=== PATIENT | female | born 1955 | race Hispanic/Latino ===

== ENCOUNTER 2020-10-01 05:01 | Emergency (ER) | payer OTHER ==
--- OUTSIDE RECORDS SUMMARY | 2020-10-01 05:04 | XMS REPORT | Continuity of Care Document ---
:1955 Author Organization [facility] t Address [address] [place] [address] Care Team Providers Name Role Phone Unavailable Unavailable Unavailable Payers Payer Name Policy Type Policy Number Effective Date Expiration Date S ource Problems This patient has no known problems. Allergies, Adverse Reactions, Alerts This patient has no known allergies or adverse reactions. Medications This patient has no known medications. Procedures This patient has no known procedures. Results This patient has no known results.
[2020-10-01] MEDS ORDERED: ACETAMINOPHEN 500 MG TAB ONE (05:56)
[2020-10-01] MEDS ORDERED: DIPHENHYDRAMINE 50 MG/ML VIAL ONE (05:56)
[2020-10-01] MEDS ORDERED: NA CHLORIDE 0.9% 1,000 ML ONE (05:56)
[2020-10-01] MEDS ORDERED: METOCLOPRAMIDE 10 MG/2mL INJ ONE (05:56)
[2020-10-01 06:12] LABS: Protime INR 1.03
[2020-10-01 06:14] LABS: Absolute Lymphocytes (CBC) 1.5 K/uL (0.7-4.9); Basophils % 1.1 % (0-1.3); Hematocrit 37.1 % (36.0-45.0); Lymphocytes % 34.2 % (15.3-44.8); MPV 8.3 fL (7.6-11.3); RBC Red Blood Cell Count 4.15 M/uL (3.86-4.86)
[2020-10-01 06:28] LABS: Albumin 3.7 g/dL (3.4-5.0); Bilirubin Direct 0.1 mg/dL (0-0.2); Bilirubin Total 0.5 mg/dL (0.2-1.0); Potassium 4.2 mmol/L (3.5-5.1); Protein, Total 8.5 g/dL (6.4-8.2)
--- NOTE | 2020-10-01 07:52 | RAD REPORT ---
EXAM DESCRIPTION: CT - Soft Tissue Neck W/Contr - 10/01/2020 7:23 am CLINICAL HISTORY: SORE THROAT COMPARISON: Head C Spine Mpr Wo Con dated 10/01/2020 TECHNIQUE: During dynamic enhancement using 100 milliliters nonionic IV contrast, axial 5 millimeter thick images of the neck were obtained. All CT scans are performed using dose optimization technique as appropriate and may include automated exposure control or mA/KV adjustment according to patient size. FINDINGS: Intracranial portion the examination is unremarkable. No evidence for cerebellopontine ang le mass. Tonsillar ectopia is not seen. No bone destruction or other suspicious skullbase finding. Mi ddle ears are fully aerated as well. Mastoid air cells and visualized paranasal sinuses are clear. No globe or orbital content abnormality seen. Cervical spine degenerative changes are present bony fora madalyn encroachment present at C4-5 and C5-6. More mild bony encroachment seen at C6-7. Right-side C7- T1 bony foraminal encroachment present. Borderline to mild central spinal stenosis present at C4-5 an d C5-6. Parotid, submandibular and thyroid gland tissue show no suspicious findings. Both internal carotid arteries show slightly aberrant medial course which creates a slight convex bul ging to the posterior pharyngeal mucosa. Parapharyngeal fat is normal. There is minimal asymmetry of the superior right tonsil and right side soft palate believed to be the affects of slight head tilt within the scanner. No tonsillar abscess o r prevertebral soft tissue thickening. There is a slight fullness to the right tonsil relative to the left. No defined mass or focus of abnormal enhancement seen. A few small nonspecific cervical lymph nodes are present. No bulky lymphadenopathy or abnormally enhancing lymph nodes. IMPRESSION: As detailed above, no abscess or surgically emergent finding identifiable. No clearly defined mass or suspicious lymphadenopathy. The slight asymmetry of the right side soft pa late and right tonsil believed to be the affects of slight head tilt. Mild pharyngitis can be present and occult on CT imaging.
[2020-10-01] MEDS ORDERED: PEN G BENZ LA 1.2MU/2ML SYRINGE IM ONE (08:15)
--- NOTE | 2020-10-01 08:18 | ER ---
Nurse's Notes [facility] Name: Marquita Phelan Age: 65 yrs Sex: Female : 1955 Arrival Date: 10/01/2020 Time: 05:06 Bed 15 Private MD: Diagnosis: Headache;Streptococcal pharyngitis;Cervical Radiculopathy Presentation: 10/01 05:13 Chief complaint: Patient states: Reports headache that started , reports the ea pain is on the right side of her head and radiates to the right side of the base of the skull, reports the pain is throbbing pressure and nothing makes the pain better. Coronavirus screen: At this time, the client does not indicate any symptoms associated with coronavirus-19. Ebola Screen: No symptoms or risks identified at this time. Initial Sepsis Screen: Does the patient meet any 2 criteria? No. Patient's initial sepsis screen is negative. Does the patient have a suspected source of infection? No. Patient's initial sepsis screen is negative. Risk Assessment: Do you want to hurt yourself or someone else? Patient reports no desire to harm self or others. Onset of symptoms. 05:13 Method Of Arrival: Ambulatory ea 05:13 Acuity: SHERON 3 ea Historical: - Allergies: 05:18 hydrocodone; ea - PSHx: 05:18 None; oral surgery; ea - Immunization history:: Adult Immunizations up to date. - Social history:: Smoking status: Patient denies any tobacco usage or history of. Screenin:16 Abuse screen: Denies threats or abuse. Nutritional screening: No deficits noted. ea Tuberculosis screening: No symptoms or risk factors identified. Fall Risk None identified. Assessment: 05:20 General: Appears uncomfortable, Behavior is appropriate for age. Pain: Complains of ea pain in right side of head and right posterior aspect of neck. Neuro: Level of Consciousness is awake, alert, obeys commands, Oriented to person, place, time. Respiratory: Airway is patent Respiratory effort is even, unlabored, Respiratory pattern is regular, symmetrical. Derm: Skin is pink, warm \T\ dry. 06:45 Reassessment: Patient and/or family updated on plan of care and expected duration. Pain ea level reassessed. Patient is alert, oriented x 3, equal unlabored respirations, skin warm/dry/pink. Vital Signs: 05:13 BP 121 / 97; Pulse 73; Resp 19; Temp 98.1; Pulse Ox 99% ; Weight 77.11 kg; Height 5 ft. ea 2 in. (157.48 cm); 08:20 BP 121 / 97; Pulse 70; Resp 18; Pulse Ox 98% on R/A; kg 05:13 Body Mass Index 31.09 (77.11 kg, 157.48 cm) ea [place] Coma Score: 08:16 Eye Response: spontaneous(4). Verbal Response: oriented(5). Motor Response: obeys rn commands(6). Total: 15. ED Course: 05:06 Patient arrived in ED. es 05:10 Fausto Myers MD is Attending Physician. [facility] 05:15 Triage completed. ea 05:16 Arm band placed on right wrist. Patient placed in an exam room, on a stretcher, on ea pulse oximetry. 05:16 Patient has correct armband on for positive identification. Bed in low position. Call ea light in reach. Pulse ox on. NIBP on. 05:29 Mindy Gotti, [facility] is Primary Nurse. ea 05:45 Inserted saline lock: 20 gauge in right antecubital area, using aseptic technique. ea Blood collected. 06:07 CT Head C Spine In Process Unspecified. EDMS 07:23 Soft Tissue Neck W/Contr CT In Process Unspecified. EDMS 08:33 No provider procedures requiring assistance completed. IV discontinued, intact, kg bleeding controlled, No redness/swelling at site. Pressure dressing applied. Administered Medications: 05:44 Drug: Reglan (metoCLOPramide) 10 mg Route: IVP; Site: right antecubital; jm8 08:35 Follow up: Response: No adverse reaction; Marked relief of symptoms kg 05:44 Drug: Benadryl (diphenhydrAMINE) 25 mg Route: IVP; Site: right antecubital; jm8 08:35 Follow up: Response: No adverse reaction; Marked relief of symptoms kg 05:44 Drug: Tylenol 1000 mg Route: PO; jm8 08:34 Follow up: Response: No adverse reaction; Marked relief of symptoms kg 05:45 Drug: NS 0.9% 1000 ml Route: IV; Rate: 1000 ml; Site: right antecubital; jm8 07:00 Follow up: Response: No adverse reaction; IV Status: Completed infusion; IV Intake: kg 1000ml 08:02 Drug: Bicillin L-A (penicillin G Benzathine) 1.2 million units Route: IM; Site: left kg gluteus; 08:34 Follow up: Response: No adverse reaction kg Intake: 07:00 IV: 1000ml; Total: 1000ml. kg Outcome: 08:17 Discharge ordered by . rn 08:33 Discharged to home ambulatory. kg 08:33 Condition: improved 08:33 Discharge instructions given to patient, family, Instructed on discharge instructions, follow up and referral plans. Demonstrated understanding of instructions, follow-up care, medications, Prescriptions given X 1. 08:36 Patient left the ED. kg Signatures: Dispatcher [employer] Soumya Barone Roman, MD MD rn Antunez, Elena, RN RN ea Holmes, Maurice, MD MD mh7 Joseph Benites RN CHINMAY jm8 Bree Forman kg
--- NOTE | 2020-10-01 08:18 | EDPHYS ---
Physician Documentation [facility] Name: Marquita Phelan Age: 65 yrs Sex: Female : 1955 Arrival Date: 10/01/2020 Time: 05:06 Bed 15 Private MD: ED Physician Fausto Myers HPI: 10/01 05:34 This 65 yrs old Female presents to ER via Ambulatory with complaints of Head mh7 pain. 05:34 The patient complains of pain to the right side of head. The patient describes the mh7 headache as throbbing. Onset: The symptoms/episode began/occurred 2 day(s) ago. 06:00 Associated signs and symptoms: Pertinent negatives: altered mental status, dizziness, mh7 fever, malaise, nausea, neck stiffness, paresthesias, Photophobia rash, sinus congestion, sinus tenderness, vision changes, vision loss, vomiting, weakness, vertigo. Severity of symptoms: At its worst the pain was moderate, yesterday, in the emergency department the pain is unchanged. Headache History: The patient has had previous headaches and this one is similar to previous episodes. The symptoms are alleviated by nothing. the symptoms are aggravated by Touching area. Historical: - Allergies: 05:18 hydrocodone; ea - PSHx: 05:18 None; oral surgery; ea - Immunization history:: Adult Immunizations up to date. - Social history:: Smoking status: Patient denies any tobacco usage or history of. ROS: 06:00 Constitutional: Negative for fever, chills, and weight loss, Eyes: Negative for injury, mh7 pain, redness, and discharge, Cardiovascular: Negative for chest pain, palpitations, and edema, Respiratory: Negative for shortness of breath, cough, wheezing, and pleuritic chest pain, Abdomen/GI: Negative for abdominal pain, nausea, vomiting, diarrhea, and constipation, Back: Negative for injury and pain, : Negative for injury, bleeding, discharge, and swelling, MS/Extremity: Negative for injury and deformity, Skin: Negative for injury, rash, and discoloration, Psych: Negative for depression, anxiety, suicide ideation, homicidal ideation, and hallucinations, Allergy/Immunology: Negative for hives, rash, and allergies, Endocrine: Negative for neck swelling, polydipsia, polyuria, polyphagia, and marked weight changes, Hematologic/Lymphatic: Negative for swollen nodes, abnormal bleeding, and unusual bruising. Exam: 06:00 Constitutional: This is a well developed, well nourished patient who is awake, alert, mh7 and in no acute distress. 06:00 Eyes: Pupils equal round and reactive to light, extra-ocular motions intact. Lids and lashes normal. Conjunctiva and sclera are non-icteric and not injected. Cornea within normal limits. Periorbital areas with no swelling, redness, or edema. ENT: Nares patent. No nasal discharge, no septal abnormalities noted. Tympanic membranes are normal and external auditory canals are clear. Oropharynx with no redness, swelling, or masses, exudates, or evidence of obstruction, uvula midline. Mucous membranes moist. 06:00 Chest/axilla: Normal chest wall appearance and motion. Nontender with no deformity. No lesions are appreciated. Cardiovascular: Regular rate and rhythm with a normal S1 and S2. No gallops, murmurs, or rubs. Normal PMI, no JVD. No pulse deficits. Respiratory: Lungs have equal breath sounds bilaterally, clear to auscultation and percussion. No rales, rhonchi or wheezes noted. No increased work of breathing, no retractions or nasal flaring. Abdomen/GI: Soft, non-tender, with normal bowel sounds. No distension or tympany. No guarding or rebound. No evidence of tenderness throughout. Back: No spinal tenderness. No costovertebral tenderness. Full range of motion. Skin: Warm, dry with normal turgor. Normal color with no rashes, no lesions, and no evidence of cellulitis. MS/ Extremity: Pulses equal, no cyanosis. Neurovascular intact. Full, normal range of motion. Neuro: Awake and alert, GCS 15, oriented to person, place, time, and situation. Cranial nerves II-XII grossly intact. Motor strength 5/5 in all extremities. Sensory grossly intact. Cerebellar exam normal. Normal gait. Psych: Awake, alert, with orientation to person, place and time. Behavior, mood, and affect are within normal limits. 06:00 Head/face: Noted is tenderness, that is moderate, of the right occipital area and right base of the skull. 06:00 Neck: External neck: tenderness, that is moderate, of the right mid cervical area and right trapezius, C-spine: appears grossly normal, no vertebral tenderness, no crepitus, Thyroid: appears normal, Trachea: is midline with no obvious abnormalities, ROM/movement: is normal, Lymph nodes: no appreciated lymphadenopathy. Vital Signs: 05:13 BP 121 / 97; Pulse 73; Resp 19; Temp 98.1; Pulse Ox 99% ; Weight 77.11 kg; Height 5 ft. ea 2 in. (157.48 cm); 08:20 BP 121 / 97; Pulse 70; Resp 18; Pulse Ox 98% on R/A; kg 05:13 Body Mass Index 31.09 (77.11 kg, 157.48 cm) ea [place] Coma Score: 08:16 Eye Response: spontaneous(4). Verbal Response: oriented(5). Motor Response: obeys rn commands(6). Total: 15. MDM: 08:02 ED course: Signed out to me by Karen Myers pending ct neck, strep +, states if ct neck rn does not show deep space infection or abscess can go home and he has written for abx.. 08:16 Differential diagnosis: strep pharyngitis, MEDICAL REGISTRAR, deep space neck infection. Data rn reviewed: vital signs, nurses notes, lab test result(s), radiologic studies, CT scan, and as a result, I will discharge patient. Counseling: I had a detailed discussion with the patient and/or guardian regarding: the historical points, exam findings, and any diagnostic results supporting the discharge/admit diagnosis, lab results, radiology results, the need for outpatient follow up, to return to the emergency department if symptoms worsen or persist or if there are any questions or concerns that arise at home. Response to treatment: the patient's symptoms have mildly improved after treatment. 08:17 Patient medically screened. rn 10/01 05:30 Order name: Strep; Complete Time: 06:39 10/01 05:33 Order name: CBC with Diff [facility] 10/01 05:33 Order name: Basic Metabolic Panel [facility] 10/01 05:33 Order name: LFT's [facility] 10/01 05:33 Order name: Protime (+inr); Complete Time: 06:39 [facility] 10/01 05:33 Order name: Ptt, Activated; Complete Time: 06:39 [facility] 10/01 05:33 Order name: CT Head C Spine [facility] 10/01 05:33 Order name: CBC with Automated Diff; Complete Time: 06:39 [facility] 10/01 05:33 Order name: Basic Metabolic Panel; Complete Time: 06:39 [facility] 10/01 05:33 Order name: Liver (Hepatic) Function; Complete Time: 06:39 [facility] 10/01 06:48 Order name: Soft Tissue Neck W/Contr CT; Complete Time: 08:16 [facility] Administered Medications: 05:44 Drug: Reglan (metoCLOPramide) 10 mg Route: IVP; Site: right antecubital; [facility] 08:35 Follow up: Response: No adverse reaction; Marked relief of symptoms kg 05:44 Drug: Benadryl (diphenhydrAMINE) 25 mg Route: IVP; Site: right antecubital; [facility] 08:35 Follow up: Response: No adverse reaction; Marked relief of symptoms kg 05:44 Drug: Tylenol 1000 mg Route: PO; [facility] 08:34 Follow up: Response: No adverse reaction; Marked relief of symptoms kg 05:45 Drug: NS 0.9% 1000 ml Route: IV; Rate: 1000 ml; Site: right antecubital; 8 07:00 Follow up: Response: No adverse reaction; IV Status: Completed infusion; IV Intake: kg 1000ml 08:02 Drug: Bicillin L-A (penicillin G Benzathine) 1.2 million units Route: IM; Site: left kg gluteus; 08:34 Follow up: Response: No adverse reaction kg Disposition: 10/01/20 08:17 Discharged to Home. Impression: Headache, Streptococcal pharyngitis, Cervical Radiculopathy. - Condition is Stable. - Discharge Instructions: General Headache Without Cause, Strep Throat, [id number], Cervical Radiculopathy, [id number]. - Prescriptions for Augmentin 875- 125 mg Oral Tablet - take 1 tablet by ORAL route every 12 hours for 10 days; 20 tablet. - Medication Reconciliation Form, Thank You Letter, Antibiotic Education, Prescription Opioid Use form. - Follow up: Private Physician; When: 1 - 2 days; Reason: Worsening of condition, Recheck today's complaints, Continuance of care, Re-evaluation by your physician. - Problem is new. - Symptoms have improved. Signatures: Dispatcher [employer] Jesus Lopez MD MD rn Antunez, Elena, RN RN ea Holmes, Maurice, MD MD mh7 Joseph Benites RN RN jm8 Bree Forman kg Corrections: (The following items were deleted from the chart) 08:36 08:17 10/01/2020 08:17 Discharged to Home. Impression: Headache; Streptococcal kg pharyngitis; Cervical Radiculopathy. Condition is Stable. Discharge Instructions: General Headache Without Cause, Strep Throat, [id number], Cervical Radiculopathy, [id number]. Forms are Medication Reconciliation Form, Thank You Letter, Antibiotic Education, Prescription Opioid Use. Follow up: Private Physician; When: 1 - 2 days; Reason: Worsening of condition, Recheck today's complaints, Continuance of care, Re-evaluation by your physician. Problem is new. Symptoms have improved. rn
[2020-10-01 08:46] VITALS: BP 121/97; TEMP 98.1
[2020-10-01 08:47] VITALS: O2SAT 98
--- NOTE | 2020-10-03 10:29 | RAD REPORT ---
EXAM DESCRIPTION: CT - [id number] - 10/01/2020 6:57 am COMPARISON: None. CLINICAL HISTORY: [facility] MAIN headache;Radiculopathy TECHNIQUE: Axial images were obtained from skull base to vertex without intravenous contrast. Imag es viewed on bone and brain windows. Multiplanar reformats were performed. Automated exposure contr ol was utilized on this examination as a dose lowering technique. FINDINGS: Brain parenchyma, ventricles, dura, meninges, and extra-axial spaces: Ventricles and sulci are normal. No abnormal attenuation of brain parenchyma is present. No acute intracranial hemor rhage or abnormal extra-axial fluid collections are present. Vascular structures: No hyperdense arteries or veins. Calvarium, mastoid air cells, paranasal sinuses and orbits: The calvarium is normal. The mastoid air cells are clear. Visualized paranasal sinuses are unremarkable. Orbital structures are unremarkable. IMPRESSION: No acute intracranial abnormality. CT CERVICAL SPINE COMPARISON: None. CLINICAL HISTORY: [facility] MAIN headache;Radiculopathy TECHNIQUE: Axial CT images were obtained through the entire cervical spine without contrast. Sagit latoya and coronal reconstructions are provided. Automated exposure control was utilized on this examina tion as a dose lowering technique. FINDINGS: Vertebrae: Vertebral statures and alignment are normal. No acute fracture, dislocation o r destructive osseous process is present. Spinal canal, foramina, and facet joints: Greatest spinal canal stenosis is mild at C4-C5 due to disc osteophyte complex. Greatest neural kervin inal stenosis is severe at right C5 and bilateral C6 due to uncovertebral and facet hypertrophy. Paraspinous soft-tissues: Normal. Thyroid: Normal. 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 Submandibular lymph nodes are increased i n number but not in size and likely reactive. IMPRESSION: 1. No acute fracture or subluxation. 2. Cervical spondylosis. Electronically signed by: Tuan Jane MD 10/01/2020 6:18 AM CDT Due to temporary technical issues with the PACS/Fluency reporting system, reports are being signed by the in house radiologists without review as a courtesy to insure prompt reporting. The interpreting radiologist is fully responsible for the content of the report.
== END 2020-10-01 08:36 | disposition home or self-care (01) ==
LOC: ER 05:01
DX: J02.0 Streptococcal pharyngitis (principal); M54.12 Radiculopathy, cervical region; Z88.5 Allergy status to narcotic agent
CPT/HCPCS: 96361; 85025; 80048; 36415; 85610; 80076; 87081; 85730; 70450; 72125; 70491; 96375; 96372; 96374; 99284; Q9967; J2765; J0561; J1200; J7030